=== PATIENT | male | born 1975 | race African-American/Black ===

== ENCOUNTER 2018-05-17 05:26 | Inpatient (IN) | payer SELFPAY ==
[2018-05-17] VITALS (14 sets, daily range): BP systolic 102–153; BP diastolic 42–70
[~2018-05-17] VITALS: Ht 180.3 cm; Wt 73.0 kg
--- NOTE | 2018-05-17 06:35 | NUR ---
md:SHERRY at beside examining patient .
[2018-05-17 06:38] LABS: CREATININE 1.3 mg/dL (0.6-1.3); POTASSIUM 3.7 mmol/L (3.5-5.1)
[2018-05-17 06:43] LABS: MONOCYTES # (AUTO) 0.4 K/uL (2.0-10.0); NEUTROPHILS # (AUTO) 2.1 K/uL (1.8-8.9)
[2018-05-17 06:44] LABS: BILIRUBIN,DIRECT 0.1 mg/dL (0.0-0.2); BILIRUBIN,TOTAL 0.3 mg/dL (0.2-1.0); TOTAL PROTEIN, SERUM 6.6 g/dL (6.4-8.2)
[2018-05-17 06:45] LABS: EOSINOPHILS % (AUTO) 0.2 % (0.0-7.0); LYMPHOCYTES # (AUTO) 1.8 K/uL (20.0-40.0); LYMPHOCYTES % (AUTO) 41.7 % (20.5-51.5); MEAN CORPUSCULAR HEMOGLOBIN 23.7 uug (23.8-33.4); MEAN CORPUSCULAR HGB CONC 33 g/dL (32.5-36.3); MEAN CORPUSCULAR VOLUME 72.7 fL (73.0-96.2); MONOCYTES % (AUTO) 9.4 % (0.0-11.0); NEUTROPHILS % (AUTO) 47.7 % (38.5-71.5); PLATELET COUNT (AUTO) 251 K/uL (152-348); WHITE BLOOD COUNT (AUTO) 4.4 K/uL (3.6-10.2)
[2018-05-17] MEDS ORDERED: IV NORMAL SALINE 1000 ML BAG IV ONE (06:45)
[2018-05-17 06:53] LABS: RED BLOOD CELL COUNT(AUTO) 2.39 MIL/uL (4.06-5.63)
[2018-05-17 06:55] LABS: HEMATOCRIT 17.3 % (36.7-47.1); HEMOGLOBIN 5.7 g/dL (12.5-16.3)
--- NOTE | 2018-05-17 07:11 | NUR ---
phebotomist at bedside for blood draws type and screen patient needs blood .
--- NOTE | 2018-05-17 07:13 | NUR ---
sbar report given to GINO LAMB .patient will need blood transfusion and needs stool for ob and will be admitted to telemetry .
--- NOTE | 2018-05-17 07:14 | NUR ---
Per Santos-2nd floor community health education coordinator- "Lily will call ER back as soon as possible." Change of shift report in progress at this time.
--- NOTE | 2018-05-17 07:25 | NUR ---
Patient wanted something to eat, notified. Dr Ritter said, "Okay to eat. Not NPO for now."
--- NOTE | 2018-05-17 07:49 | NUR ---
Per Santos,.." Qiana will call ER back."
[2018-05-17 09:49] LABS: LYMPHOCYTES % (MANUAL) 40 % (20-40); MONOCYTES % (MANUAL) 10 % (2-10); NEUTROPHILS % (MANUAL) 50 % (42-75)
[2018-05-17] MEDS ORDERED: ACETAMINOPHEN 325 MG TABLET PO PRN (10:15)
[2018-05-17] MEDS ORDERED: MAGNESIUM HYDROXIDE 30 ML LIQUID UDC PO PRN (10:15)
[2018-05-17] MEDS ORDERED: HYDROCODONE/APAP 5-325MG TABLET PO PRN (10:15)
--- NOTE | 2018-05-17 10:17 | NUR ---
Patient in from ER. at this time. AAOx4. vitals signs stable, no c/of pain. Ambulatory able to use facility. IV to RAC G 20 infusing with as reported first bag of saline and endorsement to complete the next one which comes up hanging in the pole. Patient able to transfer self to bed with no issues. Will continue with care plan as well as notified Md.
[2018-05-17 10:45] LABS: IRON, SERUM 10 ug/dL (50-175)
[2018-05-17] MEDS: HYDROCORTISONE RECTAL SUPP 25 MG EACH RC SCH ×2 (11:29→20:35)
--- NOTE | 2018-05-17 19:30 | NUR ---
RECEIVED PATIENT IN BED ALERT ORIENTED. PATIENT REPORT THAT HE HAD BM WITH BRIGHT BLOOD ON IT, DR MIRZA NOTIFIED, WITH ORDER, CONT TO MONITOR.
[2018-05-17] MEDS ORDERED: DOCUSATE SODIUM 100 MG CAPSULE PO SCH (21:00)
[2018-05-17] MEDS ORDERED: DOCUSATE SODIUM 250 MG CAPSULE PO SCH (21:00)
[2018-05-18 00:04] VITALS: BP 124/80
--- NOTE | 2018-05-18 00:06 | NUR ---
TRANSFUSED 1 UNIT RBC, TOLERATE WELL, NO SOB NO CHEST PAIN, AFEBRILE, NO ADVERSE REACTION NOTED. CONT TO MONITOR.
[2018-05-18 05:29] VITALS: BP 114/60
--- NOTE | 2018-05-18 06:36 | NUR ---
PATIENT AWAKE ALERT, NO SOB NO CHEST PAIN NOTED, NO FURTHER EPISODE OF BLEEDING FROM RECTUM, SUPPOSITORIES WAS HELP FOR THE HEMORRHOIDS, CONT ON FULL LIQUID DIET. CONSENT DONE FOR CT SCAN OF THE ABDOMEN. CONT TO MONITOR.
[2018-05-18] MEDS ORDERED: PANTOPRAZOLE SODIUM 40 MG TABLET.DR PO SCH (07:00)
--- NOTE | 2018-05-18 07:35 | NUR ---
Upon initial assessment patient found AAOX4. Vitals signs stable, no c/of pain. IV line to RAC patent. And at 0800 technology recruiter in the unit to start oral constrast, pt. instructed to finish contrast within the next [address] abdomen. . Pt. in room air with saturations wnl.
[2018-05-18 08:00] VITALS: BP 116/63
[2018-05-18] MEDS ORDERED: DIATR MEGLU/DIATRIZOATE SODIUM 30 ML SOLUTION ONE (08:00)
[2018-05-18] MEDS: HYDROCORTISONE RECTAL SUPP 25 MG EACH RC SCH (08:21)
[2018-05-18] MEDS ORDERED: IOHEXOL 300MG/ML 100 ML INFUS..BTL ONE (10:06)
[2018-05-18] MEDS ORDERED: NORMAL SALINE FLUSH 10 ML DISP.SYRIN ONE (10:06)
[2018-05-18] MEDS ORDERED: SWABABLE VALVE TRANSFER SET EA MC ONE (10:06)
[2018-05-18] MEDS ORDERED: IV NORMAL SALINE 250 ML IV ONE (10:06)
[2018-05-18 11:04] VITALS: BP 128/72
[2018-05-18 11:50] LABS: BASOPHILS # (AUTO) 0.1 K/uL (0.0-8.0); EOSINOPHILS # (AUTO) 0.1 K/uL (0.0-0.7); EOSINOPHILS % (AUTO) 1.3 % (0.0-7.0); HEMOGLOBIN 7.6 g/dL (12.5-16.3); LYMPHOCYTES # (AUTO) 1.5 K/uL (20.0-40.0); LYMPHOCYTES % (AUTO) 28.9 % (20.5-51.5); MEAN CORPUSCULAR HEMOGLOBIN 24.6 uug (23.8-33.4); MEAN CORPUSCULAR HGB CONC 33 g/dL (32.5-36.3); MEAN CORPUSCULAR VOLUME 75.1 fL (73.0-96.2); MONOCYTES # (AUTO) 0.5 K/uL (2.0-10.0); NEUTROPHILS % (AUTO) 58.8 % (38.5-71.5); PLATELET COUNT (AUTO) 226 K/uL (152-348); RED BLOOD CELL COUNT(AUTO) 3.07 MIL/uL (4.06-5.63); WHITE BLOOD COUNT (AUTO) 5.2 K/uL (3.6-10.2)
[2018-05-18] MEDS ORDERED: FERROUS SULFATE 325 MG TABEC PO SCH (12:30)
[2018-05-18] MEDS ORDERED: FERR325T28 PO (13:14)
[2018-05-18] MEDS ORDERED: HYDR25SU13 RC (13:14)
--- NOTE | 2018-05-18 13:54 | NUR ---
Patient will be going home via private car and He will drive himself back home. IV line dcd. dcd instructions given and pt. verbalized understanding of the need to increase H2O and fiber intake. Also understand the need to increase hemoglobin level as recommended. Patient left unit ambulatory no c/of pain . Will follow up with own PCP. Addendum: 05/18/18 at 1400 by JACLYN MAY RN Will go home with prescription for Anusol Hc Sup Q12H X 5days and Ferrous sulfate 325mg po Q12H.
--- NOTE | 2018-05-18 14:25 | NUR ---
Patient dcd home at this time, taken down via wheelchair. aaox4 vitals stable no c/of any discomfort.
== END 2018-05-18 14:25 | disposition home or self-care (01) | DRG 394 ==
LOC: ER 05:30 → TELE 08:33 → MED 10:10
PROVIDERS: ADMIT Internal Medicine; ATTEND Internal Medicine
PROC: 30233N1 Transfusion of Nonautologous Red Blood Cells into Peripheral Vein, Percutaneous Approach (ICD-10-PCS; principal; 2018-05-17)
DX: K64.9 Unspecified hemorrhoids (principal); D62 Acute posthemorrhagic anemia; R42 Dizziness and giddiness; R53.1 Weakness
CPT/HCPCS: 36415; 83550; 85025; 85730; 86850; 86900; 86901; 86920; 87400; 93005; A4663; G0378; J3490; J7030; J7050; J7060; P9016-BL; P9021; Q9963; Q9967